=== PATIENT | male | born 1995 | race African-American/Black ===

== ENCOUNTER 2020-06-13 14:45 | Emergency (ER) | payer OTHER ==
[2020-06-13 15:10] VITALS: BP 128/74; PULSE 61; TEMP 98.8; BMI 21.7
--- OUTSIDE RECORDS SUMMARY | 2020-06-13 15:18 | XMS ---
:1995 [facility] Name Relationship Address Phone UE Unavailable Unavailable Unavailable KRUNAL MOTHER [address] [place] [address] Re-disclosure Warning The records that you are about to access may contain information from federally- assisted alcohol or drug abuse programs. If such information is present, then the following federally mandated warning applies: This information has been disclosed to you from records protected by federal confidentiality rules (42 CFR part 2). The federal rules prohibit you from making any further disclosure of this information unless further disclosure is expressly permitted by the written consent of the person to whom it pertains or as otherwise permitted by 42 CFR part 2. A general authorization for the release of medical or other information is NOT sufficient for this purpose. The Federal rules restrict any use of the information to criminally investigate or prosecute any alcohol or drug abuse patient.The records that you are about to access may contain highly sensitive health information, the redisclosure of which is protected by Article 27-F of the [facility] Public Health law. If you continue you may haveaccess to information: Regarding HIV / AIDS; Provided by facilities licensed or operated by the [facility] Office of Mental Health; or Provided by the [facility] Office for People With Developmental Disabilities. If such information is present, then the following [facility] mandated warning applies: This information has been disclosed to you from confidential records which are protected by state law. State law prohibits you from making any further disclosure of this information without the specific written consent of the person to whom it pertains, or as otherwise permitted by law. Any unauthorized further disclosure in violation of state law may result in a fine or penitentiary sentence or both. A general authorization for the release of medical or other information is NOT sufficient authorization for further disclosure. Insurance Providers Payer name Policy type Policy ID Covered Covered constitution party's Policy P amy / Coverage constitution party ID relationship to [facility] type mart[place] [employer] [id number] [facility]
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
[2020-06-13] MEDS ORDERED: IBUPROFEN 400 MG TABLET (FP) PO ONE ×2 (17:39→17:41)
== END 2020-06-13 17:43 | disposition home or self-care (01) ==
LOC: JERFT 14:45 → JER 14:45 → JERFT 17:29
DX: S69.91XA Unspecified injury of right wrist, hand and finger(s), initial encounter (principal); S05.12XA Contusion of eyeball and orbital tissues, left eye, initial encounter
CPT/HCPCS: 70486-TC; 73090-TC-RT-FY; 73130-TC-LT-FY; 73130-TC-RT-FY; 99285-25

== ENCOUNTER 2020-08-11 12:02 | Day surgery (SDC) | payer OTHER ==
[2020-08-10 11:24] VITALS: BMI 21.7
[2020-08-11] MEDS ORDERED: DEXAMETHASONE SOD PHOSPHATE 4 MG/1 ML VIAL ONE ×2 (14:24→14:25)
[2020-08-11] MEDS ORDERED: PROPOFOL 20 ML ONE ×2 (14:24→14:35)
[2020-08-11] MEDS ORDERED: ONDANSETRON 4 MG/2 ML VIAL ONE ×2 (14:24→14:25)
[2020-08-11] MEDS ORDERED: LIDOCAINE HCL/PF 2% SDV 5ML VIAL ONE ×2 (14:24→14:25)
[2020-08-11] MEDS ORDERED: MIDAZOLAM HCL 2 MG/2 ML SINGLE DOSE VIAL ONE (14:24)
[2020-08-11] MEDS ORDERED: ceFAZolin SODIUM 1 GM VIAL ONE (14:41)
[2020-08-11] MEDS ORDERED: BUPIVACAINE HCL/PF 0.25% (2.5MG/ML) 10 ML VIAL IJ ONE (16:00)
[2020-08-11] MEDS ORDERED: BUPIVACAINE HCL/PF 0.25% (2.5MG/ML) 10 ML VIAL ONE (16:01)
[2020-08-11] MEDS ORDERED: ONDANSETRON 4 MG/2 ML VIAL IVPUSH PRN (16:29)
[2020-08-11] MEDS ORDERED: oxyCODONE HCL 5 MG TABLET PO PRN ×2 (16:29)
[2020-08-11] MEDS ORDERED: LACTATED RINGERS SOLUTION 1,000 ML IV SCH (16:30)
[2020-08-11] MEDS ORDERED: oxyCODONE HCL 5 MG TABLET ONE (17:44)
[2020-08-11] MEDS ORDERED: oxyCODONE HCL 5 MG TABLET PO ONE (17:45)
[2020-08-11 18:23] VITALS: BP 118/69; PULSE 88; TEMP 98.3
== END 2020-08-11 18:40 | disposition home or self-care (01) ==
LOC: FASU 12:02
PROVIDERS: ATTEND Orthopaedic Surgery Hand Surgery
PROC: 0PSP04Z Reposition Right Metacarpal with Internal Fixation Device, Open Approach (ICD-10-PCS; 2020-08-11)
PROC: 0RSS04Z Reposition Right Carpometacarpal Joint with Internal Fixation Device, Open Approach (ICD-10-PCS; principal; 2020-08-11 14:51)
DX: S62.316A Displaced fracture of base of fifth metacarpal bone, right hand, initial encounter for closed fracture (principal); S63.054A Dislocation of other carpometacarpal joint of right hand, initial encounter; X58.XXXA Exposure to other specified factors, initial encounter; Y93.9 Activity, unspecified; Y92.9 Unspecified place or not applicable
CPT/HCPCS: 73110-TC-RT-FY; 73130-TC-RT-FY; 94760

== ENCOUNTER 2022-04-30 14:57 | Emergency (ER) | payer OTHER ==
[2022-04-30 15:08] VITALS: BP 132/73; PULSE 78; RESP 18; TEMP 98.4; BMI 24.4
[2022-04-30] MEDS ORDERED: IBUPROFEN 600 MG TABLET (FP) PO ONE ×2 (15:42→15:48)
== END 2022-04-30 15:57 | disposition home or self-care (01) ==
LOC: JER 14:57
DX: M54.50 Low back pain, unspecified (principal)
CPT/HCPCS: 99283-25

== ENCOUNTER 2023-07-08 18:38 | Emergency (ER) | payer OTHER ==
[2023-07-08 18:52] VITALS: BP 119/86; PULSE 88; RESP 20; TEMP 98.3; BMI 23.0
[2023-07-08] MEDS ORDERED: ACETAMINOPHEN 500 MG TABLET (FP) ONE (20:06)
[2023-07-08] MEDS ORDERED: ACETAMINOPHEN 500 MG TABLET (FP) PO ONE (20:06)
== END 2023-07-08 20:45 | disposition home or self-care (01) ==
LOC: JERFT 18:38
PROC: 0HQ1XZZ Repair Face Skin, External Approach (ICD-10-PCS; principal; 2023-07-08)
DX: S01.81XA Laceration without foreign body of other part of head, initial encounter (principal); W22.8XXA Striking against or struck by other objects, initial encounter
CPT/HCPCS: 99283-25